=== PATIENT | male | born 1950 | race Asian ===

== ENCOUNTER 2016-04-23 09:15 | Outpatient (CLI) | payer MEDICARE | END 2016-04-23 09:16 | disposition home or self-care (01) | DX: R73.9 Hyperglycemia, unspecified (principal); R53.83 Other fatigue ==

== ENCOUNTER 2016-05-13 14:40 | Outpatient (CLI) | payer MEDICARE | END 2016-05-13 14:41 | disposition home or self-care (01) | DX: G47.30 Sleep apnea, unspecified (principal); G47.10 Hypersomnia, unspecified; G47.8 Other sleep disorders; R06.83 Snoring | CPT/HCPCS: 99203; G0463 ==

== ENCOUNTER 2016-06-15 19:10 | Outpatient (CLI) | payer MEDICARE | END 2016-06-15 19:11 | disposition home or self-care (01) | DX: G47.33 Obstructive sleep apnea (adult) (pediatric) (principal); Z68.28 Body mass index [BMI] 28.0-28.9, adult ==

== ENCOUNTER 2016-07-04 09:32 | Outpatient (CLI) | payer MEDICARE | END 2016-07-04 09:33 | disposition home or self-care (01) | DX: G47.33 Obstructive sleep apnea (adult) (pediatric) (principal) | CPT/HCPCS: 99214; G0463 ==

== ENCOUNTER 2016-07-22 08:19 | Outpatient (CLI) | payer MEDICARE | END 2016-07-22 08:20 | disposition home or self-care (01) | DX: E11.65 Type 2 diabetes mellitus with hyperglycemia (principal) ==

== ENCOUNTER 2016-08-15 10:55 | Outpatient (CLI) | payer MEDICARE | END 2016-08-15 10:56 | disposition home or self-care (01) | LOC: SC 10:55 | PROVIDERS: ATTEND Nurse Practitioner Family | DX: G47.33 Obstructive sleep apnea (adult) (pediatric) (principal) | CPT/HCPCS: 99214; G0463; 99212 ==

== ENCOUNTER 2016-10-24 07:50 | Outpatient (CLI) | payer MEDICARE ==
[2016-10-24 13:35] LABS: CALCIUM 9.2 mg/dL (8.5-10.3); CREATININE 1.4 mg/dL (0.6-1.2); POTASSIUM 4.2 mmol/L (3.5-5.0)
[2016-10-24 13:58] LABS: HEMOGLOBIN A1C 0.77 g/dL
== END 2016-10-24 07:51 | disposition home or self-care (01) ==
LOC: LAB.N 07:50
PROVIDERS: ATTEND Family Medicine
DX: E11.9 Type 2 diabetes mellitus without complications (principal); I10 Essential (primary) hypertension
CPT/HCPCS: 36415; 80048; 83036

== ENCOUNTER 2017-02-11 08:18 | Outpatient (CLI) | payer MEDICARE ==
[2017-02-11 13:09] LABS: CALCIUM 8.9 mg/dL (8.5-10.3); CREATININE 1.4 mg/dL (0.6-1.2)
[2017-02-11 13:26] LABS: HEMOGLOBIN A1C 0.86 g/dL
== END 2017-02-11 08:19 | disposition home or self-care (01) ==
LOC: LAB.N 08:18
PROVIDERS: ATTEND Family Medicine
DX: E11.9 Type 2 diabetes mellitus without complications (principal)
CPT/HCPCS: 36415; 80048; 83036

== ENCOUNTER 2017-05-16 08:00 | Outpatient (CLI) | payer MEDICARE ==
[2017-05-16 19:05] LABS: BASOPHILS % (AUTO) 0.4 %; EOSINOPHILS # (AUTO) 0.4 10^3/uL (0.0-0.7); EOSINOPHILS % (AUTO) 5.2 %; HGB - HEMOGLOBIN 13.7 g/dL (14.0-18.0); LYMPHOCYTES # (AUTO) 1.8 10^3/uL (1.5-3.5); LYMPHOCYTES % (AUTO) 24.6 %; MEAN CORPUSCULAR HEMOGLOBIN 31.4 pg (27.0-31.0); MEAN CORPUSCULAR HGB CONC 33.4 g/dL (32.0-36.0); MEAN PLATELET VOLUME 7.6 fL (7.4-11.4); MONOCYTES # (AUTO) 0.8 10^3/uL (0.0-1.0); MONOCYTES % (AUTO) 11.4 %; NEUTROPHILS # (AUTO) 4.2 10^3/uL (1.5-6.6); NEUTROPHILS % (AUTO) 58.4 %; PLT - PLATELET COUNT 222 10^3/uL (130-450); RED BLOOD COUNT 4.35 10^6/uL (4.70-6.10); RED CELL DISTRIBUTION WIDTH 13.5 % (12.0-15.0); WHITE BLOOD COUNT 7.3 x10^3/uL (4.8-10.8)
[2017-05-16 19:12] LABS: ALBUMIN 4.4 g/dL (3.2-5.5); ALBUMIN/GLOBULIN RATIO 1.3 (1.0-2.2); BILIRUBIN,TOTAL 0.7 mg/dL (0.2-1.0); CALCIUM 9.2 mg/dL (8.5-10.3); CREATININE 1.6 mg/dL (0.6-1.2); TOTAL PROTEIN 7.8 g/dL (6.7-8.2)
[2017-05-16 19:34] LABS: HB2 TOTAL 15.2 g/dL; HEMOGLOBIN A1C 0.9 g/dL; HEMOGLOBIN A1C % 7.6 % (4.6-6.2)
== END 2017-05-16 08:01 | disposition home or self-care (01) ==
LOC: LAB.N 08:00
PROVIDERS: ATTEND Family Medicine
DX: I12.9 Hypertensive chronic kidney disease with stage 1 through stage 4 chronic kidney disease, or unspecified chronic kidney disease (principal); E11.22 Type 2 diabetes mellitus with diabetic chronic kidney disease; N18.9 Chronic kidney disease, unspecified; R27.9 Unspecified lack of coordination
CPT/HCPCS: 36415; 80053; 83036; 85025

== ENCOUNTER 2017-08-27 08:00 | Outpatient (CLI) | payer MEDICARE ==
[2017-08-27 19:40] LABS: CALCIUM 8.8 mg/dL (8.5-10.3); CREATININE 1.4 mg/dL (0.6-1.2)
[2017-08-27 19:49] LABS: HB2 TOTAL 14.6 g/dL; HEMOGLOBIN A1C 0.65 g/dL; HEMOGLOBIN A1C % 6.2 % (4.6-6.2)
== END 2017-08-27 08:01 | disposition home or self-care (01) ==
LOC: LAB.N 08:00
PROVIDERS: ATTEND Family Medicine
DX: E11.9 Type 2 diabetes mellitus without complications (principal)
CPT/HCPCS: 36415; 80048; 83036

== ENCOUNTER 2017-11-27 15:13 | Outpatient (CLI) | payer MEDICARE | END 2017-11-27 15:14 | LOC: LAB.N 15:13 | PROVIDERS: ATTEND Family Medicine | DX: Z53.9 Procedure and treatment not carried out, unspecified reason (principal) | CPT/HCPCS: 36415; 80048; 83036 ==

== ENCOUNTER 2017-12-01 15:47 | Outpatient (CLI) | payer MEDICARE ==
[2017-12-01 19:43] LABS: CALCIUM 9.2 mg/dL (8.5-10.3); CREATININE 1.4 mg/dL (0.6-1.2)
[2017-12-01 19:48] LABS: HB2 TOTAL 13.8 g/dL; HEMOGLOBIN A1C 0.67 g/dL; HEMOGLOBIN A1C % 6.6 % (4.6-6.2)
== END 2017-12-01 15:48 | disposition home or self-care (01) ==
LOC: LAB.N 15:47
PROVIDERS: ATTEND Family Medicine
DX: E11.9 Type 2 diabetes mellitus without complications (principal)
CPT/HCPCS: 36415; 80048; 83036

== ENCOUNTER 2018-03-03 08:00 | Outpatient (CLI) | payer MEDICARE ==
[2018-03-03 20:11] LABS: CALCIUM 9.3 mg/dL (8.5-10.3); CREATININE 1.3 mg/dL (0.6-1.2)
[2018-03-03 20:28] LABS: HB2 TOTAL 13.7 g/dL; HEMOGLOBIN A1C 0.7 g/dL; HEMOGLOBIN A1C % 6.8 % (4.6-6.2)
== END 2018-03-03 23:59 | disposition home or self-care (01) ==
LOC: LAB.N 08:00
PROVIDERS: ATTEND Family Medicine
DX: E11.9 Type 2 diabetes mellitus without complications (principal)
CPT/HCPCS: 36415; 80048; 83036

== ENCOUNTER 2018-06-09 08:00 | Outpatient (CLI) | payer MEDICARE ==
[2018-06-09 19:59] LABS: HEMOGLOBIN A1C 0.69 g/dL; HEMOGLOBIN A1C % 6.7 % (4.6-6.2)
== END 2018-06-09 23:59 | disposition home or self-care (01) ==
LOC: LAB.N 08:00
PROVIDERS: ATTEND Physician Assistant Medical
DX: E11.9 Type 2 diabetes mellitus without complications (principal)
CPT/HCPCS: 36415; 83036

== ENCOUNTER 2019-02-27 10:16 | Emergency (ER) | payer MEDICARE ==
--- NOTE | 2019-02-27 11:35 | XRAY Report ---
Reason: Right ankle pain Procedure Date: 02/27/2019 Accession Number: [id number] / [id number] Procedure: XR - Ankle 3 View RT CPT Code: Final Report FULL RESULT: EXAM: RIGHT ANKLE RADIOGRAPHY EXAM DATE: 02/27/2019 11:12 AM. CLINICAL HISTORY: Right ankle pain for 3 days. Hot to the touch with swelling. COMPARISON: None. TECHNIQUE: 3 views. FINDINGS: Bones: No acute fracture or bony lesion. No periosteal reaction. Minimal degenerative spurring. Posterior and plantar calcaneal spurs. Joints: Ankle mortise is well-maintained. No definitive ankle effusion. Mild degenerative changes of the right midfoot. Soft Tissues: Soft tissue edema. Vascular calcifications. IMPRESSION: 1. No acute osseous abnormalities. 2. Mild degenerative changes. 3. No definitive ankle effusion. 4. Soft tissue edema. RADIA
--- NOTE | 2019-02-27 11:42 | ED Physician Documentation ---
PD HPI LOWER EXT INJURY - Stated complaint Stated Complaint: RT FOOT PX - Chief complaint Chief Complaint: Ext Problem - History obtained from History obtained from: Patient - History of Present Illness PD HPI LOW EXT INJURY LOCATION: Right, Ankle Type of injury: No: Fall, Twist, Blunt / blow Where injury occurred: Home Timing - onset: How many days ago (3) Timing - duration: Days (3) Timing - details: Abrupt onset, Still present Improved by: Rest Worsened by: Moving, Palpating Associated symptoms: Swelling, Discolored (mild redness and feels warm). No: Weakness, Numbness Similar symptoms before: Has not had sx before Review of Systems Constitutional: denies: Fever, Chills Nose: denies: Rhinorrhea / runny nose, Congestion Throat: denies: Sore throat Respiratory: denies: Cough GI: denies: Nausea, Vomiting, Diarrhea Skin: denies: Abrasion (s), Laceration (s) Musculoskeletal: reports: Joint pain, Joint swelling Neurologic: denies: Focal weakness, Numbness PD PAST MEDICAL HISTORY - Past Medical History Past Medical History: Yes Endocrine/Autoimmune: Type 2 diabetes Musculoskeletal: None - Past Surgical History Past Surgical History: No - Present Medications Home Medications: Ambulatory Orders Medication Instructions Recorded Confirmed Aspirin [Aspir 81] 81 mg PO DAILY 08/26/13 08/26/13 Metformin HCl [Fortamet] 500 mg PO DAILY 08/26/13 08/26/13 raNITIdine HCl [Ranitidine HCl] 150 mg PO BID #30 tablet 08/26/13 Colchicine 0.6 mg PO BID #10 capsule 02/27/19 Hydrocodone/Acetaminophen 1 - 2 each PO Q6H PRN #14 tablet 02/27/19 [Hydrocodon-Acetaminophen 5-325] Indomethacin 25 mg PO BID #10 capsule 02/27/19 - Allergies Allergies/Adverse Reactions: Allergies Allergy/AdvReac Type Severity Reaction Status Date / Time No Known Drug Allergies Allergy Verified 02/27/19 10:34 - Social History Does the pt smoke?: No Smoking Status: Never smoker Does the pt drink ETOH?: No Does the pt have substance abuse?: No - POLST Patient has POLST: No PD ED PE NORMAL - Vitals Vital signs reviewed: Yes - General General: Alert and oriented X 3, No acute distress, Well developed/nourished - Derm Derm: Normal color, Warm and dry - Extremities Extremities: Other (right ankle with anterior/medial tenderness to light tough and firmer palpation. There is some ankle effusion. No skin sores. ankle is warm but with minimal redness. Great toe and foot without tenderness. ) - Neuro Neuro: No motor deficit, No sensory deficit Results - Vitals Vitals: Vital Signs - 24 hr 02/27/19 02/27/19 10:29 13:09 Temperature 37.3 C 36.9 C Heart Rate 105 H 110 H Respiratory 16 16 Rate Blood Pressure 142/88 H 109/78 O2 Saturation 96 93 Oxygen O2 Source Room air PD MEDICAL DECISION MAKING - ED course Complexity details: considered differential (no injury. no skin sores. No redness. Has tenderness with some effusion. Consider gout rather than infection nor injury. Discussed with patient to tap ankle for disagnostic certainty vs treating empirically. Shared decision to treat empirically. ), d/w patient, d/w family (grandson - who also has gout) Departure - Departure Disposition: 01 Home, Self Care Clinical Impression: Acute right ankle pain Acute gout Qualifiers: Gout site: ankle Gout etiology: unspecified cause Laterality: right Qualified Code(s): M10.9 - Gout, unspecified Condition: Stable Record reviewed to determine appropriate education?: Yes Instructions: ED Arthritis Gout Follow-Up: Steve Becerril PA-C [Primary Care Provider] - Prescriptions: Colchicine 0.6 mg PO BID #10 capsule Hydrocodone/Acetaminophen [Hydrocodon-Acetaminophen 5-325] 1 - 2 each PO Q6H PRN #14 tablet PRN Reason: pain Indomethacin 25 mg PO BID #10 capsule Comments: This sounds likely to be gout. Use the indomethacin anti-inflammatories. Can add colchicine twice a day as well. You can stop these when the pain and inflammation have improved. Use Tylenol or hydrocodone if needed for pain. Recheck if not improved well over the next several days. Return if worsening pain or if you develop redness, fever, skin sores or other symptoms that would not fit with gout. Discharge Date/Time: 02/27/19 13:19
[2019-02-27] MEDS ORDERED: CHERRY SYRUP 10 ML UDC PO ONE (12:57)
[2019-02-27] MEDS ORDERED: DEXAMETHASONE 10 MG/ML VIAL PO STA (12:57)
[2019-02-27] MEDS ORDERED: COLCHICINE 0.6 MG TABLET PO STA (12:57)
[2019-02-27] MEDS ORDERED: HYDROcod/ACETAM 5/325 MG TABLET PO STA (12:58)
[2019-02-27 13:09] VITALS: BP 109/78
== END 2019-02-27 13:19 | disposition home or self-care (01) ==
LOC: ED 10:16
DX: M10.9 Gout, unspecified (principal); M77.31 Calcaneal spur, right foot; E11.9 Type 2 diabetes mellitus without complications; Z79.84 Long term (current) use of oral hypoglycemic drugs; Z79.82 Long term (current) use of aspirin
CPT/HCPCS: 73610; 99283; A9270

== ENCOUNTER 2019-03-03 11:31 | Outpatient (CLI) | payer MEDICARE ==
[2019-03-03 19:12] LABS: HB2 TOTAL 13.5 g/dL; HEMOGLOBIN A1C 0.82 g/dL; HEMOGLOBIN A1C % 7.7 % (4.6-6.2)
[2019-03-03 19:33] LABS: CALCIUM 9.4 mg/dL (8.5-10.3); CREATININE 1.3 mg/dL (0.6-1.2); URIC ACID 8.5 mg/dL (2.6-7.2)
== END 2019-03-03 23:59 | disposition home or self-care (01) ==
LOC: LAB.N 11:31
PROVIDERS: ATTEND Physician Assistant Medical
DX: M10.9 Gout, unspecified (principal); E11.9 Type 2 diabetes mellitus without complications
CPT/HCPCS: 36415; 80048; 83036; 84550

== ENCOUNTER 2019-04-16 10:06 | Emergency (ER) | payer MEDICAID, MEDICARE ==
--- NOTE | 2019-04-16 10:39 | ED Physician Documentation ---
PD HPI HEENT - Stated complaint Stated Complaint: DIZZINESS - Chief complaint Chief Complaint: Neuro - History obtained from History obtained from: Patient - History of Present Illness Timing - onset: How many hours ago (3), Today Timing - duration: Hours (3) Timing - details: Abrupt onset, Still present, Waxing and waning Location: Other (feeling of dizziness when he got up out of bed. Some blurred vision. Has nausea with vomiting few times due to the dizziness. Feels better holding head still but the dizziness does not go completely away. No injuries. no medications. Denies URI symtpoms.). No: Right ear, Left ear Improves: Other (holding still, sitting up) Worsens: Position (moving head and sitting up) Associated symptoms: No: Fever, Congestion, Facial swelling, Headache, Cough Similar symptoms before: Has not had sx before Recently seen: Not recently seen Review of Systems Constitutional: denies: Fever, Chills, Myalgias Eyes: reports: Decreased vision (slightly blurred). denies: Loss of vision, Photophobia, Discharge Ears: reports: Loss of hearing (less acuity left ear). denies: Ear pain Nose: denies: Rhinorrhea / runny nose, Congestion Throat: denies: Sore throat Respiratory: denies: Cough GI: reports: Nausea, Vomiting. denies: Abdominal Pain, Diarrhea Skin: denies: Rash, Lesions Neurologic: denies: Focal weakness, Numbness, Confused, Altered mental status, Headache, Head injury, LOC PD PAST MEDICAL HISTORY - Past Medical History Cardiovascular: None Respiratory: None Neuro: None Endocrine/Autoimmune: Type 2 diabetes Musculoskeletal: None - Past Surgical History Past Surgical History: No - Present Medications Home Medications: Ambulatory Orders Medication Instructions Recorded Confirmed Aspirin [Aspir 81] 81 mg PO DAILY 08/26/13 08/26/13 Metformin HCl [Fortamet] 500 mg PO DAILY 08/26/13 08/26/13 raNITIdine HCl [Ranitidine HCl] 150 mg PO BID #30 tablet 08/26/13 Colchicine 0.6 mg PO BID #10 capsule 02/27/19 Hydrocodone/Acetaminophen 1 - 2 each PO Q6H PRN #14 tablet 02/27/19 [Hydrocodon-Acetaminophen 5-325] Indomethacin 25 mg PO BID #10 capsule 02/27/19 Meclizine HCl [Motion Sickness 25 mg PO Q6H PRN #25 tablet 04/16/19 Relief] Ondansetron Odt [Zofran] 4 mg TL Q6H PRN #10 tablet 04/16/19 dexAMETHasone [Decadron] 4 mg PO DAILY #5 tablet 04/16/19 - Allergies Allergies/Adverse Reactions: Allergies Allergy/AdvReac Type Severity Reaction Status Date / Time No Known Drug Allergies Allergy Verified 04/16/19 10:16 - Social History Does the pt smoke?: No Smoking Status: Never smoker Does the pt drink ETOH?: No Does the pt have substance abuse?: No - POLST Patient has POLST: No PD ED PE NORMAL - Vitals Vital signs reviewed: Yes - General General: Alert and oriented X 3, No acute distress, Well developed/nourished - HEENT HEENT: PERRL, EOMI (mild nystagmus to the left. ), Ears normal, Moist mucous membranes, Pharynx benign - Neck Neck: Supple, no meningeal sign, No adenopathy, No bruit - Cardiac Cardiac: RRR, No murmur - Respiratory Respiratory: Clear bilaterally Results - Vitals Vitals: Oxygen O2 Source Room air - Labs Labs: Laboratory Tests 04/16/19 04/16/19 04/16/19 10:30 10:30 10:30 WBC 9.0 RBC 4.30 L Hgb 13.1 L Hct 40.5 L MCV 94.2 H MCH 30.5 MCHC 32.3 RDW 12.6 Plt Count 232 MPV 9.5 Neut # (Auto) 7.2 H Lymph # (Auto) 1.1 L [place] # (Auto) 0.4 Eos # (Auto) 0.1 Baso # (Auto) 0.1 Absolute Nucleated RBC 0.00 Nucleated RBC % 0.0 ESR 22 H Sodium 136 Potassium 4.1 Chloride 102 Carbon Dioxide 21 Anion Gap 13.0 BUN 12 Creatinine 1.4 H Estimated GFR (MDRD) 50 L Glucose 211 H Calcium 8.7 Magnesium 1.9 Total Bilirubin 0.6 AST 35 ALT 34 Alkaline Phosphatase 45 Total Protein 7.6 Albumin 4.3 Globulin 3.3 Albumin/Globulin Ratio 1.3 Lipase 39 - Rads (name of study) brain MRI Radiology: Prelim report reviewed (normal), See rad report PD MEDICAL DECISION MAKING - ED course Complexity details: reviewed results (waited several hours for MRI (was going to be not too long but then their schedule did not have the opening for awhile). MRI done and was normal and at that point was about 8 hours after symptoms, so is valid negative. ), re-evaluated patient (improved with meds; still some dizzy with sitting up. ), considered differential (onset of vertigo, worse with position, but does not go away with holding still. No URI symptoms. States mild blurred vision. No focal deficits. Cannot distinguish peripheral from central on exam and has risk factors for vascular disease. CT is undergoing maintenance for a few hours and would not be the best test anyway, so ordered brain MRI.), d/w patient Departure - Departure Disposition: 01 Home, Self Care Clinical Impression: Acute severe vertigo Peripheral vertigo, unspecified Qualifiers: Laterality: unspecified laterality Qualified Code(s): H81.399 - Other peripheral vertigo, unspecified ear Nausea and vomiting Qualifiers: Vomiting type: unspecified Vomiting Intractability: non-intractable Qualified Code(s): R11.2 - Nausea with vomiting, unspecified Condition: Stable Record reviewed to determine appropriate education?: Yes Instructions: ED Vertigo Unspecified Follow-Up: Steve Becerril PA-C [Primary Care Provider] - Prescriptions: dexAMETHasone [Decadron] 4 mg PO DAILY #5 tablet Meclizine HCl [Motion Sickness Relief] 25 mg PO Q6H PRN #25 tablet PRN Reason: Vertigo Ondansetron Odt [Zofran] 4 mg TL Q6H PRN #10 tablet PRN Reason: Nausea / Vomiting Comments: Move slowly from lying to standing or be careful about turning her head too quickly. Your MRI is normal so showing no signs of brain abnormality (stroke tumors or bleeding). The vertigo must be originating because of an inner ear disturbance. For that use meclizine every 6 hours if needed for dizziness and ondansetron if needed for nausea and vomiting. Also add Decadron steroid anti-inflammatory for presumed inflammation of the inner ear. Recheck if not improved well over the next several days. Discharge Date/Time: 04/16/19 19:23
[2019-04-16] MEDS ORDERED: SODIUM CHLORIDE 0.9% 1,000 ML IV ONE (11:14)
[2019-04-16] MEDS ORDERED: MECLIZINE 12.5 MG TABLET PO STA (11:14)
[2019-04-16] MEDS ORDERED: ONDANSETRON 4 MG/2 ML VIAL IVP STA ×2 (11:14→17:01)
[2019-04-16 11:25] LABS: BASOPHILS # (AUTO) 0.1 10^3/uL (0.0-0.1); BASOPHILS % (AUTO) 0.6 %; EOSINOPHILS # (AUTO) 0.1 10^3/uL (0.0-0.7); EOSINOPHILS % (AUTO) 1.2 %; HGB - HEMOGLOBIN 13.1 g/dL (14.0-18.0); LYMPHOCYTES # (AUTO) 1.1 10^3/uL (1.5-3.5); LYMPHOCYTES % (AUTO) 12.3 %; MEAN CORPUSCULAR HEMOGLOBIN 30.5 pg (27.0-31.0); MEAN CORPUSCULAR HGB CONC 32.3 g/dL (32.0-36.0); MEAN CORPUSCULAR VOLUME 94.2 fL (80.0-94.0); MEAN PLATELET VOLUME 9.5 fL (7.4-11.4); MONOCYTES # (AUTO) 0.4 10^3/uL (0.0-1.0); MONOCYTES % (AUTO) 4.8 %; NEUTROPHILS # (AUTO) 7.2 10^3/uL (1.5-6.6); PLT - PLATELET COUNT 232 10^3/uL (130-450); RED CELL DISTRIBUTION WIDTH 12.6 % (12.0-15.0)
[2019-04-16 11:35] LABS: ALBUMIN 4.3 g/dL (3.2-5.5); ALBUMIN/GLOBULIN RATIO 1.3 (1.0-2.2); BILIRUBIN,TOTAL 0.6 mg/dL (0.2-1.0); CALCIUM 8.7 mg/dL (8.5-10.3); CREATININE 1.4 mg/dL (0.6-1.2); MAGNESIUM 1.9 mg/dL (1.7-2.8); TOTAL PROTEIN 7.6 g/dL (6.7-8.2)
[2019-04-16] MEDS ORDERED: LORazepam 2 MG/ML VIAL IVP STA (17:01)
--- NOTE | 2019-04-16 18:20 | MRI Report ---
Reason: vertigo new onset Procedure Date: 04/16/2019 Accession Number: [id number] / [id number] Procedure: MRI - Brain W/O CPT Code: Final Report FULL RESULT: EXAM: MRI BRAIN AND INTERNAL AUDITORY CANAL (IAC),WITHOUT CONTRAST. EXAM DATE: 04/16/2019 05:59 PM. CLINICAL HISTORY: Vertigo new onset. COMPARISON: None. TECHNIQUE: Multiplanar, multisequence T1-weighted and fluid-sensitive MRI sequences of the brain and IACs were performed without administration of intravenous contrast. Other: None. IV Contrast: None. FINDINGS: Brain Volume: There is moderate generalized cerebral volume loss, in keeping with the patient's age. Parenchyma/Dura: No acute hemorrhage, mass, or acute infarct.Moderate periventricular T2 hyperintensities present, likely reflecting chronic microvascular ischemic changes in a patient of this age. Internal Auditory Canals (IACs): The high-resolution images through the posterior fossa demonstrate normal fluid signal intensity in the cochlea and semicircular canals bilaterally. Assessment for dehiscence of the superior semicircular canals cannot be performed on this exam due to patient motion. No abnormal mass lesion is seen along the cisternal course of the fifth, seventh, and eighth cranial nerves. The vestibular aqueducts are not enlarged. Ventricles/Cisterns: No hydrocephalus. No abnormal extra-axial fluid collection or hemorrhage. Orbits: Symmetric and unremarkable. Sella Turcica: The pituitary gland, cavernous sinuses, suprasellar cistern and optic chiasm are unremarkable. Vasculature: Normal signal flow void is seen in the major arterial structures at the skull base. The dural sinuses are patent and enhance normally. Sinuses: A small left mastoid effusion is noted. The paranasal sinuses are clear. Bones: No focal pathologic appearing marrow signal changes. IMPRESSION: 1. No acute infarct, intracranial mass lesion, or hemorrhage. 2. Moderate senescent changes. RADIA
[2019-04-16 18:56] VITALS: BP 140/91
== END 2019-04-16 19:23 | disposition home or self-care (01) ==
LOC: ED 10:06
DX: H81.399 Other peripheral vertigo, unspecified ear (principal); E11.9 Type 2 diabetes mellitus without complications; Z79.84 Long term (current) use of oral hypoglycemic drugs
CPT/HCPCS: 36415; 70551; 80053; 83690; 83735; 85025; 85651; 93005; 96361; 96374; 96375; 96376; 99284; A9270; J2060

== ENCOUNTER 2019-06-21 08:00 | Outpatient (CLI) | payer MEDICARE | END 2019-06-21 23:59 | disposition home or self-care (01) | LOC: LAB.N 08:00 | PROVIDERS: ATTEND Physician Assistant Medical | DX: Z11.1 Encounter for screening for respiratory tuberculosis (principal) | CPT/HCPCS: 36415; 81599; 86480 ==

== ENCOUNTER → 2019-11-02 | Outpatient (CLI) | payer MEDICARE ==
[2019-11-02 12:26] LABS: CHOL/HDL RATIO 4.8 (<5.0); CHOLESTEROL 232 mg/dL; HDL CHOLESTEROL 48 mg/dL; LDL CHOLESTEROL,CALCULATED 150 mg/dL; LDL/HDL RATIO 3.1 (<3.6); URIC ACID 9.7 mg/dL (2.6-7.2); VLDL CHOLESTEROL 34 mg/dL
[2019-11-02 12:27] LABS: PSA FREE 0.147 ng/mL (0.16-2.81)
[2019-11-02 12:28] LABS: PSA TOTAL 0.396 ng/mL (0.000-2.000)
[2019-11-02 12:52] LABS: HEMOGLOBIN A1C 0.94 g/dL; HEMOGLOBIN A1C % 8.8 % (4.6-6.2)
== END ==
LOC: LAB.WCP 08:00
PROVIDERS: ATTEND Nurse Practitioner Family
DX: E11.9 Type 2 diabetes mellitus without complications (principal); R39.11 Hesitancy of micturition; I10 Essential (primary) hypertension; M10.9 Gout, unspecified
CPT/HCPCS: 36415; 80061; 83036; 83721; 84153; 84154; 84550

== ENCOUNTER 2020-03-07 10:53 | Outpatient (CLI) | payer MEDICARE ==
--- NOTE | 2020-03-07 16:46 | XRAY Report ---
PROCEDURE: Lumbar Spine Complete INDICATIONS: LOW BACK PX TECHNIQUE: 4 views of the lumbar spine were acquired. COMPARISON: None. FINDINGS: Bones: 5 [id number] vertebrae are present. Suggestion of possible partial sacralization of the transverse processes at L5. There is normal bony alignment. No acute vertebral body compression frac tures. No suspicious bony lesions. Moderate multilevel lumbar spondylosis with associated facet art hropathy. No evidence for pars defects on the oblique views. Soft tissues: Overlying bowel gas pattern is normal. No suspicious soft tissue calcifications. IMPRESSION: Lumbar spine without acute fracture or malalignment. Moderate multilevel lumbar spondylo sis. Reviewed by: Hugh Ann MD on 03/07/2020 4:45 PM PST Approved by: Hugh Ann MD on 03/07/2020 4:45 PM PST Station ID: [id number]
== END 2020-03-07 23:59 | disposition home or self-care (01) ==
LOC: DI.N 10:53
PROVIDERS: ATTEND Family Medicine
DX: M47.816 Spondylosis without myelopathy or radiculopathy, lumbar region (principal)

== ENCOUNTER 2020-03-15 11:13 | Emergency (ER) | payer MEDICARE ==
--- NOTE | 2020-03-15 12:07 | CT Report ---
PROCEDURE: HEAD WO INDICATIONS: headache TECHNIQUE: Noncontrast 4.5 mm thick angled axial sections acquired from the foramen magnum to the vertex. For r adiation dose reduction, the following was used: automated exposure control, adjustment of mA and/or kV according to patient size. COMPARISON: None. FINDINGS: Image quality: Excellent. CSF spaces: Basal cisterns are patent. No extra-axial fluid collections. Ventricles are normal in size and shape. Brain: No midline shift. No intracranial masses or hemorrhage. Betts-white matter interface is norm al. Periventricular and subcortical hypodensities are consistent with microvascular ischemic disease . Skull and face: Calvarium and visualized facial bones are intact, without suspicious lesions. Sinuses: Visualized sinuses and mastoids are clear. IMPRESSION: No acute intracranial abnormality. Reviewed by: Ziyad Thurman on 03/15/2020 12:06 PM [facility] Approved by: Ziyad Thurman on 03/15/2020 12:06 PM [facility] Station ID: [id number]
--- NOTE | 2020-03-15 12:16 | ED Physician Documentation ---
PD HPI HEADACHE - Stated complaint Stated Complaint: HEADPX - Chief complaint Chief Complaint: Neuro - History obtained from History obtained from: Patient - History of Present Illness Timing - onset: How many days ago (3) Timing - onset during: Rest Timing - duration: Days (3) Timing - details: Gradual onset, Still present Location: Right, Left Quality: Throbbing Associated symptoms: No: Fever, Stiff neck, Nausea, Vomiting, Syncope, Eye pain Improved by: Rest Worsened by: Moving, Other (stooping or coughing) Contributing factors: No: Anticoagulated Similar symptoms before: Has not had sx before Recently seen: Not recently seen - Additional information Additional information: 69-year-old male with a history of hypertension and type 2 diabetes comes into the emergency department today complaining of a 3-day long history of headache that he has that is worse if he has a cough or tori over and bends over. He states that he is not having dizziness he is not having focal weakness or numbness. He does not have pain in his neck. Review of Systems Constitutional: denies: Fever, Chills, Myalgias Eyes: denies: Decreased vision Ears: denies: Ear pain Nose: denies: Rhinorrhea / runny nose, Congestion Throat: denies: Sore throat Cardiac: denies: Chest pain / pressure, Palpitations Respiratory: denies: Dyspnea, Cough GI: denies: Abdominal Pain, Nausea, Vomiting, Constipation, Diarrhea : denies: Dysuria, Frequency PD PAST MEDICAL HISTORY - Past Medical History Cardiovascular: None Respiratory: None Neuro: None Endocrine/Autoimmune: Type 2 diabetes Musculoskeletal: None - Past Surgical History Past Surgical History: No - Present Medications Home Medications: Ambulatory Orders Medication Instructions Recorded Confirmed Aspirin [Aspir 81] 81 mg PO DAILY 08/26/13 08/26/13 Metformin HCl [Fortamet] 500 mg PO DAILY 08/26/13 08/26/13 raNITIdine HCL [Ranitidine HCl] 150 mg PO BID #30 tablet 08/26/13 Colchicine 0.6 mg PO BID #10 capsule 02/27/19 Indomethacin 25 mg PO BID #10 capsule 02/27/19 Lisinopril [Prinivil] 10 mg PO 03/15/20 - Allergies Allergies/Adverse Reactions: Allergies Allergy/AdvReac Type Severity Reaction Status Date / Time No Known Drug Allergies Allergy Verified 03/15/20 11:19 - Social History Does the pt smoke?: No Smoking Status: Never smoker Does the pt drink ETOH?: No Does the pt have substance abuse?: No - Immunizations Immunizations are current?: Yes - POLST Patient has POLST: No PD ED PE NORMAL - Vitals Vital signs reviewed: Yes (normal) - General General: Alert and oriented X 3, No acute distress, Well developed/nourished - HEENT HEENT: Atraumatic, PERRL, EOMI, Ears normal, Other (dry mucous membranes with geographic tongue) - Neck Neck: Supple, no meningeal sign, No bony TTP - Cardiac Cardiac: RRR, No murmur - Respiratory Respiratory: No respiratory distress, Clear bilaterally - Abdomen Abdomen: Normal bowel sounds, Soft, Non tender, Non distended, No organomegaly - Back Back: No CVA TTP, No spinal TTP - Derm Derm: Normal color, Warm and dry, No rash - Extremities Extremities: No deformity, No edema - Neuro Neuro: Alert and oriented X 3, nuclear chemistry technician 2-12 intact, No motor deficit, No sensory deficit, Normal speech Eye Opening: Spontaneous Motor: Obeys Commands Verbal: Oriented GCS Score: 15 - Psych Psych: Normal mood, Normal affect Results - Vitals Vitals: Vital Signs - 24 hr 03/15/20 03/15/20 03/15/20 11:20 13:33 14:15 Temperature 36.4 C L 36.6 C Heart Rate 89 65 71 Respiratory 18 18 18 Rate Blood Pressure 112/80 120/85 H 123/84 H O2 Saturation 98 99 100 Oxygen O2 Source Room air - Labs Labs: Laboratory Tests 03/15/20 03/15/20 12:35 12:35 WBC 9.2 RBC 4.24 L Hgb 13.4 L Hct 41.0 L MCV 96.7 H MCH 31.6 H MCHC 32.7 RDW 12.0 Plt Count 253 MPV 8.9 Neut # (Auto) 7.3 H Lymph # (Auto) 1.0 L [place] # (Auto) 0.8 Eos # (Auto) 0.1 Baso # (Auto) 0.0 Absolute Nucleated RBC 0.00 Nucleated RBC % 0.0 Sodium 136 Potassium 4.6 Chloride 100 L Carbon Dioxide 25 Anion Gap 11.0 BUN 19 Creatinine 1.6 H Estimated GFR (MDRD) 43 L Glucose 157 H Calcium 10.1 Total Bilirubin 0.7 AST 27 ALT 34 Alkaline Phosphatase 62 Total Protein 7.4 Albumin 4.2 Globulin 3.2 Albumin/Globulin Ratio 1.3 Lipase 50 - Rads (name of study) CT head without Radiology: Prelim report reviewed (Impression: No acute intracranial abnormality.), EMP read indepedently, See rad report Procedures - IVC sono (time) 1225 Bedside IVC sono: IVC measures (cm) (0.84), Dehydration (est 2 liter deficit) PD MEDICAL DECISION MAKING - ED course Complexity details: reviewed results, re-evaluated patient, considered differential, d/w patient ED course: 69-year-old male with type 2 diabetes and hypertension comes to the emerge department today with chief complaint of 3 days worth of a headache that is worse when he tori or coughs. He does not have any sinus point tenderness he has no evidence of sinusitis on his CT scan and there is no other abnormality to the CT scan to account for headache. I reevaluated the patient and found on interrogation of the inferior vena cava that he was at least 2 L dehydrated and an IV line is begun is given saline. Departure - Departure Disposition: 01 Home, Self Care Clinical Impression: Dehydration Condition: Stable Instructions: ED Dehydration Follow-Up: Jaquelin [facility] [Provider Group]
[2020-03-15] MEDS ORDERED: SODIUM CHLORIDE 0.9% 1,000 ML IV STA ×2 (12:26→14:02)
[2020-03-15 12:43] LABS: BASOPHILS % (AUTO) 0.4 %; EOSINOPHILS # (AUTO) 0.1 10^3/uL (0.0-0.7); EOSINOPHILS % (AUTO) 1.3 %; HGB - HEMOGLOBIN 13.4 g/dL (14.0-18.0); LYMPHOCYTES % (AUTO) 10.7 %; MEAN CORPUSCULAR HEMOGLOBIN 31.6 pg (27.0-31.0); MEAN CORPUSCULAR HGB CONC 32.7 g/dL (32.0-36.0); MEAN CORPUSCULAR VOLUME 96.7 fL (80.0-94.0); MEAN PLATELET VOLUME 8.9 fL (7.4-11.4); MONOCYTES # (AUTO) 0.8 10^3/uL (0.0-1.0); MONOCYTES % (AUTO) 8.5 %; NEUTROPHILS # (AUTO) 7.3 10^3/uL (1.5-6.6); NEUTROPHILS % (AUTO) 78.7 %; PLT - PLATELET COUNT 253 10^3/uL (130-450); RED BLOOD COUNT 4.24 10^6/uL (4.70-6.10); WHITE BLOOD COUNT 9.2 x10^3/uL (4.8-10.8)
[2020-03-15 12:57] LABS: ALBUMIN 4.2 g/dL (3.2-5.5); ALBUMIN/GLOBULIN RATIO 1.3 (1.0-2.2); BILIRUBIN,TOTAL 0.7 mg/dL (0.2-1.0); CALCIUM 10.1 mg/dL (8.5-10.3); CREATININE 1.6 mg/dL (0.6-1.2); TOTAL PROTEIN 7.4 g/dL (6.7-8.2)
[2020-03-15 15:20] VITALS: BP 114/78
== END 2020-03-15 15:22 | disposition home or self-care (01) ==
LOC: ED 11:13
DX: R51.9 Headache, unspecified (principal); E86.0 Dehydration; I10 Essential (primary) hypertension; E11.9 Type 2 diabetes mellitus without complications; Z79.84 Long term (current) use of oral hypoglycemic drugs; Z79.82 Long term (current) use of aspirin
CPT/HCPCS: 36415; 70450; 80053; 83690; 85025; 96360; 96361; 99284

== ENCOUNTER 2020-04-04 11:13 | Outpatient (CLI) | payer MEDICARE ==
[2020-04-04 18:50] LABS: BASOPHILS # (AUTO) 0.1 10^3/uL (0.0-0.1); BASOPHILS % (AUTO) 0.6 %; EOSINOPHILS # (AUTO) 0.2 10^3/uL (0.0-0.7); EOSINOPHILS % (AUTO) 2.7 %; LYMPHOCYTES # (AUTO) 1.2 10^3/uL (1.5-3.5); MEAN CORPUSCULAR HEMOGLOBIN 31.2 pg (27.0-31.0); MEAN CORPUSCULAR HGB CONC 31.8 g/dL (32.0-36.0); MEAN CORPUSCULAR VOLUME 98.1 fL (80.0-94.0); MEAN PLATELET VOLUME 9.7 fL (7.4-11.4); MONOCYTES # (AUTO) 0.9 10^3/uL (0.0-1.0); MONOCYTES % (AUTO) 11.4 %; NEUTROPHILS # (AUTO) 5.5 10^3/uL (1.5-6.6); NEUTROPHILS % (AUTO) 69.9 %; PLT - PLATELET COUNT 235 10^3/uL (130-450); RED BLOOD COUNT 4.17 10^6/uL (4.70-6.10); RED CELL DISTRIBUTION WIDTH 12.6 % (12.0-15.0); WHITE BLOOD COUNT 7.9 x10^3/uL (4.8-10.8)
[2020-04-04 19:03] LABS: PSA FREE 0.108 ng/mL (0.16-2.81)
[2020-04-04 19:04] LABS: PSA TOTAL 0.432 ng/mL (0.000-2.000)
[2020-04-04 19:11] LABS: ALBUMIN 4.3 g/dL (3.2-5.5); ALBUMIN/GLOBULIN RATIO 1.5 (1.0-2.2); ALKALINE PHOSPHATASE 58 IU/L (42-121); ALT ALANINE AMINOTRANSFERASE 36 IU/L (10-60); AST ASPARTATE AMINOTRANSFERASE 26 IU/L (10-42); BILIRUBIN,TOTAL 0.7 mg/dL (0.2-1.0); BUN - BLOOD UREA NITROGEN 19 mg/dL (6-20); CALCIUM 9.3 mg/dL (8.5-10.3); CARBON DIOXIDE - CO2 25 mmol/L (21-32); CHLORIDE 104 mmol/L (101-111); CHOL/HDL RATIO 3.6 (<5.0); CHOLESTEROL 221 mg/dL; CREATININE 1.3 mg/dL (0.6-1.2); GLUCOSE 174 mg/dL (70-100); HDL CHOLESTEROL 61 mg/dL; LDL CHOLESTEROL,CALCULATED 120 mg/dL; SODIUM 137 mmol/L (135-145); TOTAL PROTEIN 7.1 g/dL (6.7-8.2); VLDL CHOLESTEROL 40 mg/dL
[2020-04-04 20:42] LABS: HEMOGLOBIN A1c% 9.9 % (4.27-6.07)
== END 2020-04-04 23:59 | disposition home or self-care (01) ==
LOC: LAB.WCP 11:13
PROVIDERS: ATTEND Nurse Practitioner Family
DX: E78.5 Hyperlipidemia, unspecified (principal); R39.11 Hesitancy of micturition; M10.9 Gout, unspecified; E11.8 Type 2 diabetes mellitus with unspecified complications; I10 Essential (primary) hypertension
CPT/HCPCS: 36415; 80053; 80061; 83036; 83721; 84153; 84154; 84443; 85025

== ENCOUNTER 2020-04-10 16:57 | Outpatient (CLI) | payer MEDICARE ==
--- NOTE | 2020-04-11 09:25 | XRAY Report ---
PROCEDURE: Cervical Spine 2 View INDICATIONS: NECK PX TECHNIQUE: 3 view(s) of the cervical spine were acquired. COMPARISON: None. FINDINGS: Bones: No fractures or dislocations to the T1 level. Mild degenerative kyphosis in the upper cervic al spine with the apex at C4. Trace anterolisthesis C6 on 7 due to degenerative facet change. Moderat e anterior degenerative spur formation at C4-5 and to a lesser extent C5-6. The lateral masses of C1 appear intact on the odontoid view. No suspicious bony lesions. Soft tissues: No prevertebral soft tissue swelling. Dystrophic calcification in the dorsal soft tis sues at the level of C4-5. IMPRESSION: 1. No acute fracture or subluxation. 2. Chronic appearing disc and endplate degeneration. 3. Degenerative facet disease at C6-7 causes grade 1 anterolisthesis. Reviewed by: Akilah Stoner MD on 04/11/2020 9:24 AM PST Approved by: Akilah Stoner MD on 04/11/2020 9:24 AM PST Station ID: [id number]
== END 2020-04-10 23:59 | disposition home or self-care (01) ==
LOC: DI.N 16:57
PROVIDERS: ATTEND Nurse Practitioner
DX: M50.323 Other cervical disc degeneration at C6-C7 level (principal); M40.292 Other kyphosis, cervical region

== ENCOUNTER 2020-08-16 08:00 | Outpatient (CLI) | payer MEDICARE ==
[2020-08-16 18:03] LABS: CALCIUM 9.9 mg/dL (8.5-10.3); CREATININE 1.6 mg/dL (0.6-1.2); POTASSIUM 4.3 mmol/L (3.5-5.0)
[2020-08-16 20:23] LABS: ESTIMATED AVERAGE GLUCOSE 180 mg/dL (70-100); HEMOGLOBIN A1c% 7.9 % (4.27-6.07)
== END 2020-08-16 23:59 | disposition home or self-care (01) ==
LOC: LAB.WCP 08:00
PROVIDERS: ATTEND Nurse Practitioner Family
DX: E11.9 Type 2 diabetes mellitus without complications (principal)
CPT/HCPCS: 36415; 80048; 83036

== ENCOUNTER 2020-09-04 08:00 | Outpatient (CLI) | payer MEDICARE ==
[2020-09-04 18:27] LABS: PSA FREE 0.1 ng/mL (0.16-2.81)
[2020-09-04 18:28] LABS: PSA TOTAL 0.37 ng/mL (0.000-2.000)
== END 2020-09-04 23:59 | disposition home or self-care (01) ==
LOC: LAB.WCP 08:00
PROVIDERS: ATTEND Nurse Practitioner Family
DX: R97.8 Other abnormal tumor markers (principal); R39.15 Urgency of urination
CPT/HCPCS: 36415; 84153; 84154

== ENCOUNTER 2020-10-01 02:53 | Emergency (ER) | payer MEDICARE ==
--- NOTE | 2020-10-01 03:55 | ED Physician Documentation ---
History of Present Illness - Stated complaint Stated Complaint: DIZZY, EXCESIVE SWEATING - Chief complaint Chief Complaint: General - History obtained from History obtained from: Patient, Family - History of Present Illness Timing: Prior to arrival, Enter time (0200), Today - Additonal information Additional information: 70-year-old male previously well awoke this evening at 2 AM drenched in sweat. He at one point indicated lightheadedness dizziness and nausea associated with this he has not given that and history now. He denies any recent illness. His son who accompanies him has been seen in the emergency department recently with diarrhea. That is improving. Review of Systems Constitutional: reports: Sweats. denies: Fever, Chills, Myalgias Eyes: denies: Decreased vision Ears: denies: Ear pain Nose: denies: Congestion Throat: denies: Sore throat Cardiac: denies: Chest pain / pressure, Palpitations Respiratory: denies: Dyspnea, Cough GI: reports: Nausea. denies: Abdominal Pain, Vomiting, Constipation, Diarrhea : denies: Dysuria, Frequency Skin: denies: Rash Musculoskeletal: denies: Neck pain, Back pain, Extremity pain Neurologic: denies: Generalized weakness, Focal weakness, Numbness PD PAST MEDICAL HISTORY - Past Medical History Past Medical History: Yes Cardiovascular: Hypertension, High cholesterol Respiratory: None Neuro: None Endocrine/Autoimmune: Type 2 diabetes Musculoskeletal: None - Past Surgical History Past Surgical History: No - Present Medications Home Medications: Ambulatory Orders Medication Instructions Recorded Confirmed Aspirin [Aspir 81] 81 mg PO DAILY 08/26/13 08/26/13 Metformin HCl [Fortamet] 500 mg PO DAILY 08/26/13 08/26/13 raNITIdine HCL [Ranitidine HCl] 150 mg PO BID #30 tablet 08/26/13 Colchicine 0.6 mg PO BID #10 capsule 02/27/19 Indomethacin 25 mg PO BID #10 capsule 02/27/19 lisinopriL [Prinivil] 10 mg PO 03/15/20 - Allergies Allergies/Adverse Reactions: Allergies Allergy/AdvReac Type Severity Reaction Status Date / Time No Known Drug Allergies Allergy Verified 10/01/20 02:58 - Social History Does the pt smoke?: No Smoking Status: Never smoker Does the pt drink ETOH?: No Does the pt have substance abuse?: No - Immunizations Immunizations are current?: Yes - POLST Patient has POLST: No PD ED PE NORMAL - Vitals Vital signs reviewed: Yes (normal ) - General General: No acute distress, Well developed/nourished, Other (70-year-old male sleeping soundly when I come into the room and denies any current symptoms. 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, No motor deficit, No sensory deficit, Normal speech Eye Opening: Spontaneous Motor: Obeys Commands Verbal: Oriented GCS Score: 15 - Psych Psych: Normal mood, Normal affect Results - Vitals Vitals: Vital Signs - 24 hr 10/01/20 10/01/20 10/01/20 02:58 03:01 05:01 Temperature 36.5 C 36.5 C 36.5 C Heart Rate 78 78 69 Respiratory 16 16 12 Rate Blood Pressure 121/65 121/65 134/80 H O2 Saturation 98 98 97 10/01/20 06:44 Temperature 36.6 C Heart Rate 63 Respiratory 16 Rate Blood Pressure 119/75 O2 Saturation 98 Oxygen O2 Source Room air - EKG (time done) 0307 Rate: Rate (enter#) (71) Rhythm: NSR Ischemia: Normal ST segments Compare to prior EKG: Changed from prior EKG (SPT 04-16-2019 the QTc has decreased to normal) Computer interpretation: Agree with computer - Labs Labs: Laboratory Tests 10/01/20 10/01/20 10/01/20 03:48 03:48 06:20 WBC 8.2 RBC 4.27 L Hgb 13.1 L Hct 40.4 L MCV 94.6 H MCH 30.7 MCHC 32.4 RDW 12.5 Plt Count 208 MPV 9.0 Neut # (Auto) 5.9 Lymph # (Auto) 1.2 L [place] # (Auto) 0.9 Eos # (Auto) 0.2 Baso # (Auto) 0.0 Absolute Nucleated RBC 0.00 Nucleated RBC % 0.0 Sodium 138 Potassium 3.6 Chloride 103 Carbon Dioxide 25 Anion Gap 10.0 BUN 19 Creatinine 1.6 H Estimated GFR (MDRD) 43 L Glucose 67 L Calcium 9.7 Total Bilirubin 0.7 AST 30 ALT 26 Alkaline Phosphatase 55 Total Protein 7.4 Albumin 4.4 Globulin 3.0 Albumin/Globulin Ratio 1.5 Lipase 61 H Urine Color LT. YELLOW Urine Clarity CLEAR Urine pH 5.5 Ur Specific [place] 1.010 Urine Protein NEGATIVE Urine Glucose (UA) NEGATIVE Urine Ketones NEGATIVE Urine Occult Blood NEGATIVE Urine Nitrite NEGATIVE Urine Bilirubin NEGATIVE Urine Urobilinogen 0.2 (NORMAL) Ur Leukocyte Esterase NEGATIVE Ur Microscopic Review NOT INDICATED Urine Culture Comments NOT INDICATED Procedures - IVC sono (time) 0355 Bedside IVC sono: IVC measures (cm) (1.29), IVC collapsed c insp (cm) (complete), Dehydration (es t<1 liter deficit) PD MEDICAL DECISION MAKING - ED course Complexity details: reviewed results, re-evaluated patient, considered differential, d/w patient, d/w family ED course: 70-year-old male with history of type 2 diabetes and hypertension has developed acute night sweats that soaked his bed last night with no specific reason. He felt this was a reason to come to the emergency department and he shows up without other symptoms he is dehydrated. I thought it was important to check for occult infection we did not find this on evaluation. He is given a liter of saline and discharged home. Departure - Departure Disposition: 01 Home, Self Care Clinical Impression: Dehydration, Night sweats Condition: Stable Instructions: ED Dehydration Follow-Up: ALEKSEY PHILLPI, MSN, MANAGER MEDICAL WRITING [Primary Care Provider] -
[2020-10-01] MEDS ORDERED: SODIUM CHLORIDE 0.9% 1,000 ML IV STA (04:00)
[2020-10-01 04:01] LABS: BASOPHILS % (AUTO) 0.4 %; EOSINOPHILS # (AUTO) 0.2 10^3/uL (0.0-0.7); EOSINOPHILS % (AUTO) 2.6 %; HCT - HEMATOCRIT 40.4 % (42.0-52.0); HGB - HEMOGLOBIN 13.1 g/dL (14.0-18.0); LYMPHOCYTES # (AUTO) 1.2 10^3/uL (1.5-3.5); MEAN CORPUSCULAR HEMOGLOBIN 30.7 pg (27.0-31.0); MEAN CORPUSCULAR HGB CONC 32.4 g/dL (32.0-36.0); MEAN CORPUSCULAR VOLUME 94.6 fL (80.0-94.0); MONOCYTES # (AUTO) 0.9 10^3/uL (0.0-1.0); MONOCYTES % (AUTO) 10.7 %; NEUTROPHILS # (AUTO) 5.9 10^3/uL (1.5-6.6); NEUTROPHILS % (AUTO) 72.1 %; PLT - PLATELET COUNT 208 10^3/uL (130-450); RED BLOOD COUNT 4.27 10^6/uL (4.70-6.10); RED CELL DISTRIBUTION WIDTH 12.5 % (12.0-15.0); WHITE BLOOD COUNT 8.2 x10^3/uL (4.8-10.8)
[2020-10-01 04:12] LABS: ALBUMIN 4.4 g/dL (3.2-5.5); ALBUMIN/GLOBULIN RATIO 1.5 (1.0-2.2); BILIRUBIN,TOTAL 0.7 mg/dL (0.2-1.0); CALCIUM 9.7 mg/dL (8.5-10.3); CREATININE 1.6 mg/dL (0.6-1.2); POTASSIUM 3.6 mmol/L (3.5-5.0); TOTAL PROTEIN 7.4 g/dL (6.7-8.2)
[2020-10-01 06:35] LABS: BILIRUBIN,URINE NEGATIVE (NEGATIVE); GLUCOSE, URINE (UA) NEGATIVE (NEGATIVE); KETONES,URINE (UA) NEGATIVE (NEGATIVE); LEUKOCYTE ESTERASE, URINE NEGATIVE (NEGATIVE); NITRITE,URINE NEGATIVE (NEGATIVE); OCCULT BLOOD,URINE NEGATIVE (NEGATIVE); PH,URINE 5.5 PH (5.0-7.5); PROTEIN,URINE NEGATIVE (NEGATIVE); UROBILINOGEN,URINE 0.2 (NORMAL) E.U./dL (NORMAL)
[2020-10-01 06:41] LABS: CLARITY,URINE CLEAR (CLEAR)
[2020-10-01 06:45] VITALS: BP 119/75
--- NOTE | 2020-10-01 07:48 | XRAY Report ---
PROCEDURE: Chest 1 View X-Ray INDICATIONS: sweats TECHNIQUE: One view of the chest was acquired. COMPARISON: 09/10/2013 FINDINGS: Surgical changes and devices: None. Lungs and pleura: No pleural effusions or pneumothorax. Lungs are clear. Mediastinum: The aorta is prominent and tortuous. The cardiac contours are within normal limits. Bones and chest wall: No suspicious bony lesions. Age-appropriate degenerative changes are seen. Overlying soft tissues appear unremarkable. IMPRESSION: Portable chest within normal limits for age. Note: No significant discrepancy from the preliminary report. Reviewed by: Kerwin Kowalski MD on 10/01/2020 6:46 AM [facility]IL[facility] Approved by: Kerwin Kowalski MD on 10/01/2020 6:46 AM [facility] Station ID: [id number]
== END 2020-10-01 07:07 | disposition home or self-care (01) ==
LOC: ED 02:53
DX: E86.0 Dehydration (principal); R61 Generalized hyperhidrosis
CPT/HCPCS: 36415; 80053; 81001; 81003; 83690; 85025; 87086; 93005; 96360; 99283

== ENCOUNTER 2020-12-18 15:47 | Outpatient (CLI) | payer MEDICARE ==
--- NOTE | 2020-12-18 12:50 | XRAY Report ---
PROCEDURE: Foot 3 View RT INDICATIONS: R ACHILLES TENDONITIS TECHNIQUE: Views of the location were acquired. COMPARISON: None. FINDINGS: Bones: No fractures or dislocations. No suspicious bony lesions. Visualized ribs appear intact. T here are plantar and Achilles calcaneal spurs. Soft tissues: No suspicious soft tissue calcifications. IMPRESSION: Calcaneal spurs, otherwise normal right foot. Reviewed by: Ziyad Thurman on 12/18/2020 12:48 PM PDT Approved by: Ziyad Thurman on 12/18/2020 12:48 PM PDT Station ID: [id number]
== END 2020-12-18 15:48 ==
LOC: DI.N 15:47
PROVIDERS: ATTEND Physician Assistant Medical
DX: M76.61 Achilles tendinitis, right leg (principal); M77.31 Calcaneal spur, right foot